=== PATIENT | female | born 1985 | race Caucasian/White ===

== ENCOUNTER 2020-02-20 11:33 | Emergency (ER) | payer OTHER ==
[~2020-02-20 11:33] MED LIST: AUGMENTIN TAB875 MG PO; BUSPIRONE HCL15 MG PO; CLINDAMYCIN HC300 MG PO; COLACE100 MG PO; DESYREL 50 MG T50 MG PO; IBU600 MG PO; IBUPROFEN800 MG PO; KLONOPIN TAB 00.5 MG PO; MACROBID 100 M100 MG PO; NAPROSYN500 MG PO; OMNICEF 300 MG300 MG PO; PROZAC10 MG PO; SEROQUEL100 MG PO; SYNTHROID112 MCG PO; TESSALON PERLE100 MG PO; TYLENOL 325MG325 MG PO
[2020-02-20] MEDS ORDERED: IBUPROFEN600 MG PO (15:24)
[2020-02-20] MEDS ORDERED: NORFLEX 100 MG100 MG PO (15:24)
== END 2020-02-20 15:45 | disposition home or self-care (01) ==
LOC: ER1 11:33
DX: S06.9X9A Unspecified intracranial injury with loss of consciousness of unspecified duration, initial encounter (principal); S80.12XA Contusion of left lower leg, initial encounter; S40.022A Contusion of left upper arm, initial encounter; S40.021A Contusion of right upper arm, initial encounter; M54.5 Low back pain; M25.511 Pain in right shoulder; R07.81 Pleurodynia; Z88.2 Allergy status to sulfonamides; R10.9 Unspecified abdominal pain; Y04.2XXA Assault by strike against or bumped into by another person, initial encounter; Y92.009 Unspecified place in unspecified non-institutional (private) residence as the place of occurrence of the external cause; Y07.03 Male partner, perpetrator of maltreatment and neglect
CPT/HCPCS: 70450; 71111; 72100; 72125; 73030; 81001; 84703; 99284

== ENCOUNTER 2020-03-08 13:28 | Emergency (ER) | payer OTHER ==
[~2020-03-08 13:28] MED LIST changes: +IBUPROFEN600 MG PO; +NORFLEX 100 MG100 MG PO
[2020-03-08 14:37] LABS: HEMOGLOBIN 12.7 gm/dl (12.3-15.3); RED BLOOD COUNT 3.92 M/UL (4.00-5.10); WHITE BLOOD COUNT 8.3 K/UL (4.5-11.0)
[2020-03-08 15:24] LABS: BUN/CREATININE RATIO 10 (0-10)
[2020-03-08] MEDS ORDERED: MACROBID 100 M100 MG PO (16:43)
== END 2020-03-08 17:06 | disposition home or self-care (01) ==
LOC: ER1 13:28
PROVIDERS: Physician Assistant
DX: O23.40 Unspecified infection of urinary tract in pregnancy, unspecified trimester (principal); O99.891 Other specified diseases and conditions complicating pregnancy; R07.9 Chest pain, unspecified; J02.9 Acute pharyngitis, unspecified; O99.330 Smoking (tobacco) complicating pregnancy, unspecified trimester; F17.200 Nicotine dependence, unspecified, uncomplicated; Z88.2 Allergy status to sulfonamides; Z3A.00 Weeks of gestation of pregnancy not specified; Z20.822 Contact with and (suspected) exposure to COVID-19
CPT/HCPCS: 36415; 71045; 80053; 81001; 82550; 82553; 83874; 84484; 84703; 85025; 87077; 87081; 87086; 87186; 87880; 93005; 99285; U0002

== ENCOUNTER 2020-07-07 22:44 | Outpatient (CLI) | payer OTHER | END 2020-07-08 00:57 | disposition home or self-care (01) | LOC: GENOP 22:44 | DX: O9A.212 Injury, poisoning and certain other consequences of external causes complicating pregnancy, second trimester (principal); S39.91XA Unspecified injury of abdomen, initial encounter; G89.11 Acute pain due to trauma; O99.282 Endocrine, nutritional and metabolic diseases complicating pregnancy, second trimester; E07.9 Disorder of thyroid, unspecified; O99.342 Other mental disorders complicating pregnancy, second trimester; F41.9 Anxiety disorder, unspecified; F32.9 Major depressive disorder, single episode, unspecified; F43.10 Post-traumatic stress disorder, unspecified; O99.012 Anemia complicating pregnancy, second trimester; D64.9 Anemia, unspecified; Z87.440 Personal history of urinary (tract) infections; Z88.2 Allergy status to sulfonamides; Z79.899 Other long term (current) drug therapy; Z3A.23 23 weeks gestation of pregnancy; Y04.8XXA Assault by other bodily force, initial encounter | CPT/HCPCS: 59025; G0463 ==

== ENCOUNTER 2020-09-15 07:28 | Emergency (ER) | payer OTHER | END 2020-09-15 09:56 | disposition home or self-care (01) | LOC: ER1 07:28 | DX: O9A.213 Injury, poisoning and certain other consequences of external causes complicating pregnancy, third trimester (principal); S63.501A Unspecified sprain of right wrist, initial encounter; F17.210 Nicotine dependence, cigarettes, uncomplicated; Z79.899 Other long term (current) drug therapy; Z88.2 Allergy status to sulfonamides; Z3A.33 33 weeks gestation of pregnancy; V49.40XA Driver injured in collision with unspecified motor vehicles in traffic accident, initial encounter; Y92.410 Unspecified street and highway as the place of occurrence of the external cause | CPT/HCPCS: 29125; 73110; 99284 ==

== ENCOUNTER → 2021-01-17 | Outpatient (CLI) | payer OTHER ==
[~2021-01-17] MED LIST changes: +GABAPENTIN800 MG PO; +KLONOPIN1 MG PO; -SYNTHROID112 MCG PO; +SYNTHROID150 MCG PO
[2021-01-17 10:00] LABS: HEMOGLOBIN 13.4 gm/dl (12.3-15.3); RED BLOOD COUNT 4.18 M/UL (4.00-5.10); WHITE BLOOD COUNT 7.2 K/UL (4.5-11.0)
== END ==
LOC: OPSV2 09:00
PROVIDERS: Obstetrics & Gynecology
DX: Z01.812 Encounter for preprocedural laboratory examination (principal); D25.9 Leiomyoma of uterus, unspecified
CPT/HCPCS: 36415; 81001; 85025

== ENCOUNTER 2021-01-24 07:38 | Day surgery (SDC) | payer OTHER ==
[~2021-01-24] VITALS: Ht 160 cm; Wt 82.1 kg
[~2021-01-24 07:38] MED LIST changes: -GABAPENTIN800 MG PO
[2021-01-24] MEDS ORDERED: GABAPENTIN800 MG PO (08:02)
[2021-01-24 14:23] LABS: HEMOGLOBIN 8.6 gm/dl (12.3-15.3)
[2021-01-25 08:22] LABS: HEMOGLOBIN 6.8 gm/dl (12.3-15.3)
[2021-01-26 04:42] LABS: HEMOGLOBIN 7.8 gm/dl (12.3-15.3)
[2021-01-26] MEDS ORDERED: FEROSUL325 MG PO (09:02)
[2021-01-26] MEDS ORDERED: DOCUSATE SODIU250 MG PO (09:02)
[2021-01-26] MEDS ORDERED: IBUPROFEN600 MG PO (09:02)
[2021-01-26] MEDS ORDERED: HYDROCODONE-AC1 EACH PO (09:02)
== END 2021-01-26 11:45 | disposition home or self-care (01) ==
LOC: OR 07:38 → MED SURG 4 17:25 → OR 01-26 11:45
PROVIDERS: Obstetrics & Gynecology
DX: D25.1 Intramural leiomyoma of uterus (principal); N72 Inflammatory disease of cervix uteri; N92.1 Excessive and frequent menstruation with irregular cycle; K66.0 Peritoneal adhesions (postprocedural) (postinfection); J18.9 Pneumonia, unspecified organism; D64.9 Anemia, unspecified; E03.9 Hypothyroidism, unspecified; F17.200 Nicotine dependence, unspecified, uncomplicated; F41.9 Anxiety disorder, unspecified; F32.A Depression, unspecified; F43.10 Post-traumatic stress disorder, unspecified; Z90.49 Acquired absence of other specified parts of digestive tract; Z88.2 Allergy status to sulfonamides; Z79.899 Other long term (current) drug therapy; Z80.8 Family history of malignant neoplasm of other organs or systems; Z80.9 Family history of malignant neoplasm, unspecified
CPT/HCPCS: 36415; 84702; 85014; 85018; 86850; 86870; 86900; 86901; 86902; 86920; 86922; C1769; J0690; J1100; J1170; J2250; J2270; J2370; J2405; J2550; J2704; J2710; J3010; J7120